=== PATIENT | female | born 1935 | race Caucasian/White ===

== ENCOUNTER 2017-08-27 21:37 | Inpatient (IN) | payer OTHER ==
[~2017-08-27] VITALS: Ht 172.7 cm; Wt 61.2 kg
[~2017-08-27 21:37] MED LIST: ALEN70TA55 PO; ASPI-231 PO; DIGO0.1262 PO; DONE10TA40 PO; LOVA40TA72 PO; METO25TA5 PO; SERT-275 PO; TRAM50TA2 PO
[2017-08-28 00:42] LABS: Basophils # (auto) 0.1 uL; Basophils % (auto) 1.4 % (0.0-2.0); Eosinophils # (auto) 0.4 uL; Eosinophils % (auto) 4.8 % (0.0-7.0); Hematocrit 35.6 % (36.0-46.0); Hemoglobin 11.9 g/dL (12.2-16.2); Lymphocytes # (auto) 1.8 uL; Lymphocytes % (auto) 23.7 % (10.0-50.0); Mean Corpuscular Hemoglobin 32.3 pg (28.0-32.0); Mean Corpuscular Hgb Conc. 33.4 g/dL (32.0-36.0); Mean Corpuscular Volume 96.7 fL (80.0-100.0); Monocytes # (auto) 0.6 uL; Monocytes % (auto) 8.4 % (0.0-12.0); Neutrophils # (auto) 4.7 uL; Neutrophils % (auto) 61.7 % (37.0-80.0); Platelet Count (auto) 173 10^3/uL (140-450); Red Blood Cells 3.68 10^6/uL (4.0-5.20); Red Cell Distribution Width 14.4 % (11.8-14.3); White Blood Cell 7.6 10^3/uL (4.4-10.8)
[2017-08-28 00:57] LABS: INR 0.99 (0.9-1.15); Partial Thromboplastin Time 20.1 sec (22.64-33.71); Prothrombin Time 10.8 sec (9.37-12.3)
[2017-08-28 00:59] LABS: Albumin 3.1 g/dL (3.4-5.0); BUN/Creatinine Ratio 29.7; Calcium 8.9 mg/dL (8.5-10.1); Potassium 3.8 mmol/L (3.5-5.1)
[2017-08-28 01:04] LABS: Bilirubin, Total 0.3 mg/dL (0.2-1.0); Total Protein 5.8 g/dL (6.4-8.2)
[2017-08-28] MEDS ORDERED: ACETAMINOPHEN 325 MG TAB PO PRN (03:15)
[2017-08-28] MEDS ORDERED: NALBUPHINE HCL 10 MG/1ml INJECTION IV PRN (03:15)
[2017-08-28] MEDS ORDERED: ONDANSETRON HCL 4 MG/2 ML VIAL IV PRN (03:15)
[2017-08-28] MEDS ORDERED: DOCUSATE SOD 100 MG CAP PO PRN (03:15)
[2017-08-28] MEDS ORDERED: DEXTROSE (50%) 50ML SYRG IV PRN (03:15)
[2017-08-28] MEDS ORDERED: NITROGLYCERIN 0.4 MG SL TAB SL PRN (03:15)
[2017-08-28] MEDS ORDERED: MORPHINE SULFATE 4 MG/ML SYR/VIAL IV PRN (03:15)
[2017-08-28 03:55] LABS: Urine Bacteria FEW /hpf (None Seen); Urine Blood Negative /uL (Negative); Urine Specific Gravity 1.021 (1.001-1.035); Urine WBC 98 /hpf (0 - 5)
[2017-08-28 05:00] VITALS: BP 151/76
[2017-08-28] MEDS: InsuLIN REG 1unit/0.01ml Soln (100units/ml) SC SCH ×2 (05:53→12:00)
[2017-08-28] MEDS: ACCU-CHEK COMFORT CURVE STRIP VI SCH ×2 (06:00→12:30)
[2017-08-28 08:00] VITALS: BP 150/80
[2017-08-28 08:55] VITALS: BP 150/80
[2017-08-28] MEDS ORDERED: METOPROLOL SUCCINATE XL 50 MG TAB PO SCH (10:00)
[2017-08-28] MEDS ORDERED: ENOXAPARIN SOD 40 MG/0.4 ML SYRINGE SC SCH ×2 (10:00)
[2017-08-28] MEDS ORDERED: FAMOTIDINE 20 MG TAB PO SCH (10:00)
[2017-08-28] MEDS ORDERED: ASPirin 81 mg TAB PO SCH (10:00)
[2017-08-28] MEDS ORDERED: PATIENTS OWN MEDICATION (lovastatin 40 MG) PO SCH (10:00)
[2017-08-28] MEDS ORDERED: SERTRALINE HCL 50 MG TAB PO SCH (10:00)
[2017-08-28] MEDS ORDERED: DIGOXIN 0.125 MG TAB PO SCH (10:00)
[2017-08-28 13:15] VITALS: BP 139/68
[2017-08-28 13:19] VITALS: BP 149/77
[2017-08-28] MEDS ORDERED: PRAVASTATIN SODIUM 20 MG TAB PO SCH (22:00)
[2017-08-28] MEDS ORDERED: DONEPEZIL HYDROCHLORIDE 5 MG TAB PO SCH (22:00)
== END 2017-08-28 14:10 | disposition home or self-care (01) | DRG 638 ==
LOC: EDBD 21:37 → ER 21:40 → TELE 21:41 → TELE-WESTW 08-28 04:05
PROVIDERS: ADMIT Nurse Practitioner; ATTEND Nurse Practitioner
DX: E11.65 Type 2 diabetes mellitus with hyperglycemia (principal); N39.0 Urinary tract infection, site not specified; I48.91 Unspecified atrial fibrillation; R07.89 Other chest pain; E78.5 Hyperlipidemia, unspecified; I10 Essential (primary) hypertension; N28.9 Disorder of kidney and ureter, unspecified; Z90.710 Acquired absence of both cervix and uterus; Z90.49 Acquired absence of other specified parts of digestive tract; Z88.1 Allergy status to other antibiotic agents; Z88.6 Allergy status to analgesic agent; Z88.8 Allergy status to other drugs, medicaments and biological substances; Z88.2 Allergy status to sulfonamides; Z95.0 Presence of cardiac pacemaker; Z79.82 Long term (current) use of aspirin
CPT/HCPCS: 36415; 71045; 80053; 81001; 82962; 83036; 83880; 84484; 85025; 85610; 85730; 93005; 93306; 96372